=== PATIENT | female | born 1940 | race Asian ===

== ENCOUNTER 2022-05-01 08:15 | Emergency (ER) | payer OTHER ==
[~2022-05-01] VITALS: Ht 157.5 cm; Wt 98.1 kg
[2022-05-01] MEDS ORDERED: ROCURONIUM BROMIDE 10 MG/ML 5 ML VIAL IV ONE (08:17)
[2022-05-01] MEDS ORDERED: ETOMIDATE 2 MG/ML 10 ML VIAL IV ONE (08:17)
[2022-05-01] MEDS ORDERED: ROCURONIUM BROMIDE 10 MG/ML 5 ML VIAL IVP ONE (08:20)
[2022-05-01] MEDS ORDERED: MIDAZOLAM HCL 2 MG/2 ML VIAL ONE (08:24)
[2022-05-01 08:37] LABS: EOSINOPHILS % (AUTO) 2.6 % (1.0-6.0); HEMATOCRIT 39.3 % (36-46); HEMOGLOBIN 12.8 g/dL (12.0-16.0); MEAN CORPUSCULAR HEMOGLOBIN 29.3 pg (26.0-34.0); MEAN CORPUSCULAR HGB CONC 32.6 G/dL (31.0-37.0); MEAN CORPUSCULAR VOLUME 90 fL (80-100); MONOCYTES # (AUTO) 0.9 K/uL (0.1-1.0); MONOCYTES % (AUTO) 6.9 % (2.0-9.0); NEUTROPHILS # (AUTO) 7.1 K/uL (1.8-7.7); NEUTROPHILS % (AUTO) 52.5 % (40.0-70.0); PLATELET COUNT (AUTO) 295 K/uL (150-450); RED BLOOD CELL COUNT(AUTO) 4.37 MIL/uL (4.00-5.20); RED CELL DISTRIBUTION WIDTH 13.7 % (11.5-14.5)
[2022-05-01 08:48] LABS: CALCIUM, TOTAL 9.2 mg/dL (8.8-10.5); CREATININE 1.57 mg/dL (0.60-1.30)
[2022-05-01 08:57] LABS: ALBUMIN 3.2 g/dL (3.4-5.0); BILIRUBIN,TOTAL 0.6 mg/dL (0.1-1.0); TOTAL PROTEIN, SERUM 7.5 g/dL (6.4-8.2)
[2022-05-01 09:02] LABS: PROTHROMBIN TIME 10.5 SEC (9.4-11.6)
[2022-05-01] MEDS ORDERED: MIDAZOLAM HCL 2 MG/2 ML VIAL IVP ONE (09:30)
[2022-05-01 09:32] LABS: COVID AG,FIA SOURCE NASAL SWAB
[2022-05-01] MEDS ORDERED: MANNITOL 25%-12.5 GM/50 ML VIAL IVP ONE (09:45)
[2022-05-01] MEDS ORDERED: MANNITOL 20%-100 GM/500 ML 500 ML IV ONE (10:00)
[2022-05-01 10:03] LABS: APPEARANCE,URINE CLEAR (CLEAR); BILIRUBIN,URINE NEGATIVE (NEGATIVE); GLUCOSE, URINE (UA) NEGATIVE (NEGATIVE); KETONES,URINE NEGATIVE (NEGATIVE); LEUKOCYTE ESTERASE ,URINE NEGATIVE (NEGATIVE); NITRATE,URINE NEGATIVE (NEGATIVE); OCCULT BLOOD,URINE NEGATIVE (NEGATIVE); PH,URINE 5.5 (5.0-8.0); PROTEIN,URINE 30-70 mg/dL (NEGATIVE); SPECIFIC GRAVITIY, URINE 1.016 (1.003-1.030); UROBILINOGEN,URINE <=1.0 mg/dL (<=1.0)
[2022-05-01 10:09] LABS: AMPHET/METH SCREEN,URINE NEGATIVE (NEGATIVE); BARBITURATE SCREEN, URINE NEGATIVE (NEGATIVE); BENZODIAZEPINES SCREEN,URINE POSITIVE (NEGATIVE); CANNABINOID SCREEN,URINE NEGATIVE (NEGATIVE); COCAINE SCREEN,URINE NEGATIVE (NEGATIVE); METHADONE SCREEN, URINE NEGATIVE (NEGATIVE); OPIATE SCREEN,URINE NEGATIVE (NEGATIVE)
[2022-05-01 10:10] LABS: PHENCYCLIDINE SCREEN,URINE NEGATIVE (NEGATIVE)
[2022-05-01] MEDS ORDERED: MANNITOL IV ONE (10:15)
[2022-05-01 10:35] VITALS: BP 118/75
[2022-05-01] MEDS ORDERED: ATROPINE SULFATE 0.1 MG/ML 10 ML SYRINGE IVP ONE (11:16)
[2022-05-01] MEDS ORDERED: ATROPINE SULFATE 0.1 MG/ML 10 ML SYRINGE IVP STA (11:22)
[2022-05-01 11:45] LABS: BACTERIA,URINE None Seen /HPF (None Seen); RBC,URINE None Seen /HPF (0-2); WBC,URINE 0-2 /HPF (0-5)
== END 2022-05-01 11:27 | disposition short-term general hospital (02) ==
LOC: EMS 08:16 → EDBD 08:16 → EMS 11:27
DX: I60.7 Nontraumatic subarachnoid hemorrhage from unspecified intracranial artery (principal); I61.9 Nontraumatic intracerebral hemorrhage, unspecified; E11.9 Type 2 diabetes mellitus without complications; Z79.899 Other long term (current) drug therapy; Z20.822 Contact with and (suspected) exposure to COVID-19
CPT/HCPCS: 31500; 36415; 70450; 71045; 80053; 80307; 81001; 82948; 84484; 85025; 85610; 85730; 86850; 86900; 86901; 87426; 93005; 96365; 99291; 99292; J0461; J2150; J2250; J3490 ×2; Z7610; 94002